=== PATIENT | male | born 1965 | race Caucasian/White ===

== ENCOUNTER 2021-12-15 22:56 | Emergency (ER) | payer BC | END 2021-12-16 00:30 | disposition home or self-care (01) | LOC: JP.ED 22:56 | DX: U07.1 COVID-19 (principal); R09.1 Pleurisy; Z79.899 Other long term (current) drug therapy | CPT/HCPCS: 36415; 71045; 71045-26; 80053; 82728; 83605; 83615; 84145; 85025; 85379; 86140; 99282; 99285-25 ==